=== PATIENT | male | born 1940 | race Caucasian/White ===

== ENCOUNTER 2024-03-04 07:33 | Emergency (ER) | payer MEDICARE, BC, SELFPAY ==
[2024-03-04] VITALS (7 sets, daily range): BP systolic 126–185; BP diastolic 53–71; BMI 26.3
--- NOTE | 2024-03-04 08:00 | EDRN ---
this RN attempted to clean the blood off of the pts face from the nose laceration and the pt almost bit this RN and almost hit this RN in the face, this RN notified the provider, this RN attempted to re orient the pt with no success, will attempt to
wash the pts face at a later time
--- NOTE | 2024-03-04 09:08 | ED.GENMED ---
History of Present Illness
General
Chief Complaint: Fall
Source: patient
Exam Limitations: none
Time Seen by Provider: 03/04/24 08:24
History of Present Illness
History of Present Illness:
83-year-old male presents from facility after unwitnessed fall. Unknown loss of consciousness. Patient is a poor historian. Information did not come from nursing facility. He has never been here before. He denies pain.
Phy Exam
Physical Exam
Physical Exam:
General: Well-appearing male no acute respiratory distress
HEENT: Normocephalic superficial laceration to the bridge of the nose pupils equal round reactive to light
Neurologic exam: Alert responsive verbal stimuli able to tell me his name oriented to person only not place or time. No facial asymmetry slow to respond to questions no unilateral weakness
Musculoskeletal exam: Cervical spine is nontender
Extremities: No cyanosis
Course
Orders/Labs/Results
Orders:
Orders
03/04/24 08:32
CT Head W/o Iv Contrast Urgent
Comment:
Reason For Exam: fall
03/04/24 11:15
Complete Blood Count/With Diff Urgent
Comprehensive Metabolic Panel Urgent
Vital Signs
Initial and Last Documented VS:
Initial Vital Signs
Temp Pulse Resp BP Pulse Ox
98.5 F 51 16 135/53 96
03/04/24 07:33 03/04/24 07:33 03/04/24 07:33 03/04/24 07:33 03/04/24 07:33
Last Documented Vital Signs
Temp Pulse Resp BP Pulse Ox
98.5 F 54 16 155/54 98
03/04/24 09:52 03/04/24 09:52 03/04/24 09:52 03/04/24 09:52 03/04/24 09:52
MDM/Problems Addressed
Differential Diagnosis Includes:
Fall with head injury. Evaluate for facial fracture versus intracranial hemorrhage
*Critical Care Note
Total Time (30-74mins, 75-104mins- exclusive of procedures): Not Applicable
Update Note
Update Note:
CT reviewed and demonstrates chronic and subacute subdural collections. I got a hold the patient's . She states he has severe dementia. He has been at his baseline. He was agitated here and per the this is not new. Patient's
states that he is a DNR. Did discuss with about potential for keeping her here in the hospital for repeat imaging to ensure no further bleeding however she states she would not intervene if there were any further bleeding. She request for him
to go back to the facility. Discussed findings with neurosurgery they are made aware. Patient discharged to [facility]
ED Attending Note
-
Portions of this chart may have been created with voice recognition software.� Occasional wrong word or��sound alike� substitutions may have occurred due to the inherent limitations of voice recognition software.
Discharge Plan
Departure
Patient Disposition: Home (Routine Discharge)
Date of Disposition: 03/04/24
Time of Disposition: 11:47
Patient with high blood pressure during this ER visit?: No
Discharge Problem:
Chronic subdural hematoma
Instructions: Wound Care (DC)
Referrals:
Kathryn Isidro CRNP [Family Provider] -
Activity Restrictions/Additional Instructions:
The patient has chronic subdural hematomas in his brain. This finding was discussed with his . They are not interested in any further intervention regarding these findings. They wish for him to be sent back to [facility]
Interventions
Interventions:
*Risk Screen - Suicide Last Done: 03/04/24 07:33
*General Assessment Last Done: 03/04/24 07:33
*Neglect/Abuse Screening Last Done: 03/04/24 07:33
ED- Fall Risk Assessment Last Done: 03/04/24 07:33
*ED COVID-19 Vaccine History Last Done: 03/04/24 07:33
ED-Musculoskeletal Assessment Last Done: 03/04/24 07:33
ED- Neurological Assessment Last Done: 03/04/24 07:33
ED-Skin Assessment Last Done: 03/04/24 07:33
Discharge Date and Time
Print Language: L[place]
--- NOTE | 2024-03-04 11:19 | EDRN ---
this RN notified Mau MARK that the pt was made a level 2 and provider entered the room
--- NOTE | 2024-03-04 12:00 | EDRN ---
this RN entered the pts room and saw that the pt was attempting to get out of bed, this RN with another OPERATING ROOM AIDE assisted the pt back into a comfortable position in the stretcher, the pt is resting in stretcher in the lowest position, side rails up x2,
call longoria within reach, HOB elevated, no s/s of distress, no c/o pain, this RN attempted to clean the blood off of the pts face again and the pt almost bit this RN's hand, this RN notified the provider, will continue to monitor the pt closely
--- NOTE | 2024-03-04 14:14 | EDRN ---
this RN entered the pts room to check on the pt and attempt to clean the blood off of the pts face again, this RN noticed that the pt was taking his gown off, this RN placed a gown back on the pt and provided the pt with warm blankets, this RN then
attempted to try to clean the blood off of the pts face and the pt was extremely combative, when this RN stopped trying to clean the pts face, the pt then relaxed and closed his eyes and stated to leave him alone and let him sleep, this RN notified
the provider, awaiting for transport to arrive to take the pt home, will continue to monitor the pt closely
--- NOTE | 2024-03-04 14:25 | EDRN ---
[facility]ute [facility] Transport has arrived and verbal report was given to them
--- NOTE | 2024-03-04 14:34 | EDRN ---
this RN along with Lexie RAMAN cleaned the pt and changed the pts brief and placed a new gown on the pt, the pt was calm and cooperative with this, this RN also was able to clean the blood off of the pts face
== END 2024-03-04 14:35 | disposition home or self-care (01) ==
LOC: EMR 07:33
PROVIDERS: EMERGENCY PHYSICIAN Emergency Medicine; FAMILY PHYSICIAN Nurse Practitioner Adult Health
DX: S06.5XAA Traumatic subdural hemorrhage with loss of consciousness status unknown, initial encounter (principal); W19.XXXA Unspecified fall, initial encounter
CPT/HCPCS: 99284; 70450